=== PATIENT | male | born 1995 | race Hispanic/Latino ===

== ENCOUNTER 2019-04-05 06:49 | Inpatient (IN) | payer OTHER ==
[2019-04-05] MEDS ORDERED: Ondansetron PF 4 MG/2 ML Vial IVP PRN (09:01)
[2019-04-05] MEDS ORDERED: Ondansetron ODT 4 MG TAB PO PRN (09:02)
[2019-04-05 12:32] VITALS: BMI 27.9
[2019-04-05] MEDS ORDERED: Ibuprofen 600 MG TAB PO PRN (12:59)
[2019-04-05] MEDS ORDERED: Acetaminophen 500 MG TAB PO PRN (12:59)
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
[2019-04-05 16:26] VITALS: BP 120/70; TEMP 98
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
== END 2019-04-05 19:50 | DRG 158 ==
LOC: EEVIPCON 06:49 → ERS 06:49 → SURG A 08:28
PROVIDERS: ADMIT Specialist; ATTEND Specialist
DX: S02.40DA Maxillary fracture, left side, initial encounter for closed fracture (principal); S02.32XA Fracture of orbital floor, left side, initial encounter for closed fracture; S02.2XXA Fracture of nasal bones, initial encounter for closed fracture; Y04.2XXA Assault by strike against or bumped into by another person, initial encounter; H53.2 Diplopia; Y92.149 Unspecified place in prison as the place of occurrence of the external cause; Z87.891 Personal history of nicotine dependence